=== PATIENT | male | born 1940 | race Caucasian/White ===

== ENCOUNTER → 2016-11-15 | Outpatient (CLI) | payer MEDICARE, BC | END | disposition home or self-care (01) | LOC: GMAB 10:10 | PROVIDERS: ATTEND Family Medicine | DX: Z12.5 Encounter for screening for malignant neoplasm of prostate (principal); I10 Essential (primary) hypertension | CPT/HCPCS: 84443; G0103 ==

== ENCOUNTER 2017-08-05 16:00 | Emergency (ER) | payer MEDICARE, BC ==
--- NOTE | 2017-08-05 16:13 | ED.PDOC ---
History of Present Illness - General Chief Complaint: General Stated Complaint: low blood sugar ,felt weak,drooping left eyelid Time Seen by Provider: 08/05/17 16:13 Source: patient, family - History of Present Illness Initial Comments: Henry Chou 77 y/o male stated that while he was outside on his atv called him up and noticed that his voice was slurred on the phone and advised him to go home also on arrival at his house felt weak both extremities and his left eyelid was drooping blood sugar check fsbs-95 and his bp-167/96 called up his grandson ems in [facility] and advised to check his blood sugar every 3 hours ate bunch of peanuts and sandwich w/c brought bs-300+ and also stated he might have mistakenly gave 2 shots of his insulin levemir.Decided to come to [facility]. Timing/Duration: resolved prior to arrival Severity: moderate Improving Factors: nothing Worsening Factors: nothing Associated Symptoms: denies symptoms Allergies/Adverse Reactions: Allergies NO KNOWN ALLERGY Allergy (Unverified 10/31/15 16:54) Home Medications: Ambulatory Orders Aspirin (Enteric Coated) 81 mg PO DAILY #0 06/12/13 Insulin Regular (Human) [Novolin R] 1 units SUBCU TID #0 06/12/13 Potassium Chloride Tab [K-Dur] 20 meq PO BID #0 06/12/13 Prasugrel [Effient] 10 mg PO DAILY #0 06/12/13 Sotalol [Betapace] 80 mg PO BID #0 06/12/13 Insulin Glargine [Lantus Solostar] 20 unit SC DAILY 07/25/13 Furosemide Tab [Lasix Tab] 40 mg PO BID #0 07/28/13 Canagliflozin [Invokana] 300 mg PO DAILY 12/22/14 Lisinopril 20 mg PO BEDTIME 12/22/14 Glipizide [Glipizide ER] 5 mg PO BID 04/08/15 Mupirocin 2 % [Bactroban] 22 gm EX DAILY 04/08/15 Rosuvastatin Calcium [Crestor] 20 mg PO BEDTIME 04/08/15 amLODIPine BESYLATE [Norvasc] 5 mg PO BEDTIME 04/08/15 rifAMPin [Rifampin] 300 mg PO DAILY 04/08/15 Rivaroxaban [Xarelto] 10 mg PO QD #8 tab 05/06/15 Acetaminophen W/ Codeine [Tylenol w/Codeine 300-30 mg] 1 tab PO Q4HR #20 tab Sulfa/Trimeth 800/160 (Ds) Tab [Bactrim DS Tab] 1 ea PO BID #14 tab 10/31/15 Review of Systems - Review of Systems Constitutional: States: no symptoms reported EENTM: States: no symptoms reported Respiratory: States: no symptoms reported Cardiology: States: no symptoms reported Gastrointestinal/Abdominal: States: no symptoms reported Genitourinary: States: no symptoms reported Musculoskeletal: States: no symptoms reported Skin: States: no symptoms reported Neurological: States: see HPI Past Medical History (General) - Patient Medical History Hx Seizures: No Hx Stroke: No Hx Asthma: No Hx of COPD: No Hx Cardiac Disorders: Yes Hx Congestive Heart Failure: Yes Hx Pacemaker: Yes Hx Hypertension: Yes Hx Diabetes: Yes Hx Cancer: No Hx MRSA: No Surgical History: pacemaker, other - cardiac stents,eye surgery-retinal detachment,knee,skin grafting -cramer - Vaccination History Hx Tetanus, Diphtheria Vaccination: No Hx Influenza Vaccination: Yes Hx Pneumococcal Vaccination: No - Social History Hx Alcohol Use: No Hx Substance Use: No Hx Substance Use Treatment: No Hx Physical Abuse: No Hx Emotional Abuse: No - Activities of Daily Living Patient Lives Alone: No - family Grooming Ability: Independent Eating (Feeding) Ability: Independent Toileting Ability: Independent Family Medical History - Family History Father Family History: Unknown Living Status: Hx Family Asthma: No Hx Family Congestive Heart Failure: Yes Hx Family Hypertension: Yes Hx Family Stroke: No Hx Cardiac Disease: No Hx Family Diabetes: Yes Hx Family Cancer: No Physical Exam - Physical Exam General Appearance: Alert, Comfortable, No apparent distress, Other - speech fluent Eye Exam: bilateral normal Ears, Nose, Throat: hearing grossly normal, normal ENT inspection, normal pharynx Neck: non-tender, full range of motion, supple Respiratory: chest non-tender, lungs clear, normal breath sounds Cardiovascular/Chest: normal peripheral pulses, regular rate, rhythm, no murmur Peripheral Pulses: radial,right: 2+, radial,left: 2+ Gastrointestinal/Abdominal: normal bowel sounds, non tender, soft, no organomegaly Extremity: normal inspection, no pedal edema, no calf tenderness Neurologic: coo II-XII nml as tested, no motor/sensory deficits, alert, oriented x 3, other - pronator drift negative,FNT -negative speech fluent no dysarthria Skin Exam: normal color, warm/dry Lymphatic: no adenopathy Progress - Progress Progress: 08/05/17 17:03 Last Vital Signs Temp 97.7 F 08/05/17 16:07 Pulse 69 08/05/17 16:07 Resp 20 08/05/17 16:07 BP 200/109 08/05/17 16:07 Pulse Ox 94 L 08/05/17 16:07 08/05/17 18:15 stated feeling better - Results/Orders Results/Orders: Laboratory Tests 08/05/17 08/05/17 08/05/17 16:49 16:49 16:49 WBC 8.1 RBC 5.02 Hgb 16.8 Hct 48.8 MCV 97.3 H MCH 33.4 H MCHC 34.3 RDW 13.7 Plt Count 181 MPV 8.4 Absolute Neuts (auto) 6.80 Absolute Lymphs (auto) 0.90 L Absolute Monos (auto) 0.30 Absolute Eos (auto) 0.00 Absolute Basos (auto) 0.00 Neutrophils % 84.2 H Lymphocytes % 11.3 L Monocytes % 3.9 Eosinophils % 0.2 L Basophils % 0.4 PT 11.5 INR 1.020 PTT (SP) 38.4 H Sodium 137 Potassium 4.0 Chloride 102 Carbon Dioxide 25 Anion Gap 14.0 BUN 28 H Creatinine 1.09 BUN/Creatinine Ratio 25.7 H Random Glucose 241 H Serum Osmolality 287.2 Calcium 8.8 Total Bilirubin 1.0 AST 56 H ALT 45 Alkaline Phosphatase 87 Troponin I Serum Total Protein 7.7 Albumin 3.7 Globulin 4.0 H Albumin/Globulin Ratio 0.9 L 08/05/17 16:49 WBC RBC Hgb Hct MCV MCH MCHC RDW Plt Count MPV Absolute Neuts (auto) Absolute Lymphs (auto) Absolute Monos (auto) Absolute Eos (auto) Absolute Basos (auto) Neutrophils % Lymphocytes % Monocytes % Eosinophils % Basophils % PT INR PTT (SP) Sodium Potassium Chloride Carbon Dioxide Anion Gap BUN Creatinine BUN/Creatinine Ratio Random Glucose Serum Osmolality Calcium Total Bilirubin AST ALT Alkaline Phosphatase Troponin I 0.04 Serum Total Protein Albumin Globulin Albumin/Globulin Ratio - EKG/XRAY/CT EKG: Sinus Comments: heart rate-[address] Ordered: Yes - no acute abnormality Departure - Departure Clinical Impression: Weakness of both arms, History of diabetes mellitus, type II Hypertension Qualifiers: Hypertension type: unspecified secondary hypertension Qualified Code(s): I15.9 - Secondary hypertension, unspecified; I15 - Secondary hypertension Time of Disposition: 18:13 Disposition: Discharge to Home or Self Care Departure Forms: ED Discharge - Pt. Copy, Patient Portal Self Enrollment Referrals: Luc Sánchez MD [Primary Care Provider] - 1-2 Weeks Home Medications: Ambulatory Orders Aspirin (Enteric Coated) 81 mg PO DAILY #0 06/12/13 Insulin Regular (Human) [Novolin R] 1 units SUBCU TID #0 06/12/13 Potassium Chloride Tab [K-Dur] 20 meq PO BID #0 06/12/13 Prasugrel [Effient] 10 mg PO DAILY #0 06/12/13 Sotalol [Betapace] 80 mg PO BID #0 06/12/13 Insulin Glargine [Lantus Solostar] 20 unit SC DAILY 07/25/13 Furosemide Tab [Lasix Tab] 40 mg PO BID #0 07/28/13 Canagliflozin [Invokana] 300 mg PO DAILY 12/22/14 Lisinopril 20 mg PO BEDTIME 12/22/14 Glipizide [Glipizide ER] 5 mg PO BID 04/08/15 Mupirocin 2 % [Bactroban] 22 gm EX DAILY 04/08/15 Rosuvastatin Calcium [Crestor] 20 mg PO BEDTIME 04/08/15 amLODIPine BESYLATE [Norvasc] 5 mg PO BEDTIME 04/08/15 rifAMPin [Rifampin] 300 mg PO DAILY 04/08/15 Rivaroxaban [Xarelto] 10 mg PO QD #8 tab 05/06/15 Acetaminophen W/ Codeine [Tylenol w/Codeine 300-30 mg] 1 tab PO Q4HR #20 tab Sulfa/Trimeth 800/160 (Ds) Tab [Bactrim DS Tab] 1 ea PO BID #14 tab 10/31/15 Additional Instructions: RETURN TO EMERGENCY ROOM NEEDED;Follow up with primary md 08/08/2017; Continue with all home medications
[2017-08-05 16:33] VITALS: TEMP 97.7
--- NOTE | 2017-08-05 17:22 | CT ---
PROCEDURE: Head CLINICAL HISTORY: 77 years Male weakness COMPARISON: None. TECHNIQUE: Contiguous axial CT images obtained through the brain without IV contrast. This exam was performed according to our department optimization program which includes automated exposure control, adjustment of the mA and/or kv according to patient size and/or use of iterative reconstruction technique. FINDINGS: The ventricles and sulci are prominent consistent with atrophic changes. Microvascular ischemic changes. No midline shift or mass effect. No mass lesions. No acute hemorrhage. Atherosclerotic calcifications. Opacification of posterior ethmoid air cell on the left with some calcification suggesting inspissated secretions. No depressed calvarial fractures. IMPRESSION: No acute intracranial abnormality is identified. Generalized atrophy with microvascular ischemic changes. Electronically signed by: Esthela Vega 08/05/2017 5:21 PM FACILITY ADMINISTRATOR
[2017-08-05 19:40] VITALS: BP 175/108; O2SAT 93
== END 2017-08-05 18:40 | disposition home or self-care (01) ==
LOC: ER 16:00
DX: R53.1 Weakness (principal); I15.9 Secondary hypertension, unspecified; E11.9 Type 2 diabetes mellitus without complications; I11.0 Hypertensive heart disease with heart failure; I50.9 Heart failure, unspecified; Z79.4 Long term (current) use of insulin; Z95.0 Presence of cardiac pacemaker; Z98.61 Coronary angioplasty status; Z79.82 Long term (current) use of aspirin

== ENCOUNTER → 2017-08-25 | Outpatient (CLI) | payer MEDICARE, BC | LOC: GMAB 10:22 | PROVIDERS: ATTEND Family Medicine | DX: D50.0 Iron deficiency anemia secondary to blood loss (chronic) (principal); K76.0 Fatty (change of) liver, not elsewhere classified ==

== ENCOUNTER → 2017-12-20 | Outpatient (CLI) | payer MEDICARE, BC | END | disposition home or self-care (01) | LOC: GMAB 12:38 | PROVIDERS: ATTEND Family Medicine | DX: Z12.5 Encounter for screening for malignant neoplasm of prostate (principal); I10 Essential (primary) hypertension | CPT/HCPCS: 84443; G0103 ==

== ENCOUNTER → 2019-01-04 | Outpatient (CLI) | payer MEDICARE | LOC: GMAE 10:34 | PROVIDERS: ATTEND Family Medicine | DX: R53.82 Chronic fatigue, unspecified (principal); E11.9 Type 2 diabetes mellitus without complications; Z12.5 Encounter for screening for malignant neoplasm of prostate | CPT/HCPCS: 84443; G0103 ==

== ENCOUNTER → 2020-01-07 | Outpatient (CLI) | payer MEDICARE | LOC: GMAE 11:40 | PROVIDERS: ATTEND Family Medicine | DX: Z12.5 Encounter for screening for malignant neoplasm of prostate (principal); I10 Essential (primary) hypertension; E11.9 Type 2 diabetes mellitus without complications; E78.2 Mixed hyperlipidemia | CPT/HCPCS: 84443; G0103 ==

== ENCOUNTER → 2020-04-23 | Outpatient (CLI) | payer MEDICARE | LOC: GMAE 17:15 | PROVIDERS: ATTEND Family Medicine | DX: R10.13 Epigastric pain (principal) ==

== ENCOUNTER → 2020-05-02 | Outpatient (CLI) | payer MEDICARE | END | disposition home or self-care (01) | LOC: CT 08:36 | PROVIDERS: ATTEND Family Medicine | DX: K55.059 Acute (reversible) ischemia of intestine, part and extent unspecified (principal) ==